=== PATIENT | female | born 1970 | race Caucasian/White ===

== ENCOUNTER 2017-03-27 09:57 | Emergency (ER) | payer MEDICAID ==
[~2017-03-27] VITALS: Ht 170.2 cm; Wt 83.8 kg
[2017-03-27 11:10] VITALS: BP 115/77
== END 2017-03-27 11:00 | disposition home or self-care (01) ==
LOC: ER 09:58
DX: M25.521 Pain in right elbow (principal); Z88.5 Allergy status to narcotic agent
CPT/HCPCS: 73080; 99284